=== PATIENT | female | born 1995 | race Native Hawaiian/Other Pacific Islander ===

== ENCOUNTER 2017-07-15 11:26 | Emergency (ER) | payer OTHER ==
[2017-07-15 11:40] VITALS: TEMP 98.8; O2SAT 98
--- NOTE | 2017-07-15 12:26 | C.PDOC ---
History Of Present Illness 22 y/o female with no significant PMHx, comes in for evaluation of gradual onset of left lower back pain for the past 4 weeks. Pain is described as localized, with intermittent radiation down the left leg. She notes it worsens with change in position. Otherwise denies fever, chills, abdominal pain, lower extremity weakness, numbness, incontinence of bowel/bladder, dysuria, or urinary frequency. Time Seen by Provider: 07/15/17 12:21 Chief Complaint (Nursing): Back Pain History Per: Patient History/Exam Limitations: no limitations Onset/Duration Of Symptoms: Days Current Symptoms Are (Timing): Still Present Past Medical History Reviewed: Historical Data, Nursing Documentation, Vital Signs Vital Signs: Last Vital Signs Temp 98.8 F 07/15/17 11:38 Pulse 60 07/15/17 11:38 Resp 18 07/15/17 11:38 BP 108/72 07/15/17 11:38 Pulse Ox 98 07/15/17 12:26 - Medical History PMH: No Chronic Diseases Surgical History: No Surg Hx Family History: States: No Known Family Hx - Social History Hx Alcohol Use: Yes Hx Substance Use: No Review Of Systems Constitutional: Negative for: Fever, Chills Gastrointestinal: Negative for: Abdominal Pain Genitourinary: Negative for: Dysuria, Frequency, Incontinence, Hematuria Musculoskeletal: Positive for: Back Pain Neurological: Negative for: Weakness, Numbness Physical Exam - Physical Exam Appears: Well, Non-toxic, No Acute Distress Skin: Normal Color, Warm, No Rash Head: Normacephalic Eye(s): bilateral: PERRL Nose: No Discharge Oral Mucosa: Moist Throat: No Erythema, No Drooling Neck: Trachea Midline, No Midline Cervical Tenderness, No Paracervical Tenderness, Supple Chest: Symmetrical, No Deformity Cardiovascular: Rhythm Regular Respiratory: No Accessory Muscle Use, No Rales, No Rhonchi, No Wheezing Gastrointestinal/Abdominal: Soft, No Tenderness, No Distention, No Guarding Back: No Vertebral Tenderness, Muscle Spasm (to L paralumbar region), Paraspinal Tenderness (to L paralumbar region) Extremity: Normal ROM, No Tenderness, No Deformity, No Swelling Pulses: Left Dorsalis Pedis: Normal, Right Dorsalis Pedis: Normal Neurological/Psych: Oriented x3, Normal Speech, Normal Motor, Normal Sensation, Normal Reflexes ED Course And Treatment O2 Sat by Pulse Oximetry: 98 (RA) Pulse Ox Interpretation: Normal Progress Note: On re-evaluation, pt is afebrile, hemodynamicaly stable. Non- toxic. Ambulatory in ED with stable gait. ENT: no acute findings. Uvula midline , no edema. Neck: Supple, (-) JVD. Lungs: CTA B/L, BS equal B/L. Abd: benign , (-) guaridng. Back: (-) CVA tenderness. Neuorlogicaly intact. UA review- normal stady. FSBS 94. Pt has clinical findings c/w lumbar radiculopathy. Pt advised. ref. to f/u with PMD in 2-3 days for re-evaluation. return to ED if any worsening or new changes. Disposition Counseled Patient/Family Regarding: Studies Performed, Diagnosis, Need For Followup, Rx Given - Disposition Referrals: [facility] [Outside] Disposition: HOME/ ROUTINE Disposition Time: 12:54 Condition: STABLE Additional Instructions: Take medication as prescribed Light duty to lower back, avoid leaning forwards, heavy lifting, etc Follow up with PMD in 2-3 days for re-evaluation. return to ED if any worsening or new changes. 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 - Scribe Statement The provider has reviewed the documentation as recorded by the Scribe (Brigida Costa) All medical record entries made by the Scribe were at my direction and personally dictated by me. I have reviewed the chart and agree that the record accurately reflects my personal performance of the history, physical exam, medical decision making, and the department course for this patient. I have also personally directed, reviewed, and agree with the discharge instructions and disposition.
[2017-07-15 12:41] LABS: HCG,QUALITATIVE URINE NEGATIVE (NEGATIVE)
[2017-07-15 12:42] LABS: SQUAMOUS EPITHIAL 2 /hpf (0-5); URINE BILIRUBIN NEGATIVE (NEGATIVE); URINE BLOOD NEGATIVE (NEGATIVE); URINE CLARITY Clear (Clear); URINE COLOR Yellow (YELLOW); URINE GLUCOSE (UA) NORMAL (Normal); URINE LEUKOCYTE ESTERASE NEG Leu/uL (Negative); URINE PROTEIN NEGATIVE (NEGATIVE); URINE UROBILINOGEN NORMAL mg/dL (0.2-1.0)
[2017-07-15 13:06] VITALS: BP 119/68; PULSE 71; RESP 16
== END 2017-07-15 13:05 | disposition home or self-care (01) ==
LOC: C.ER 11:26
DX: M54.16 Radiculopathy, lumbar region (principal)